=== PATIENT | female | born 1930 | race African-American/Black ===

== ENCOUNTER 2019-02-13 11:08 | Day surgery (SDC) | payer OTHER ==
[2019-02-11 12:28] VITALS: BMI 25.4
[2019-02-13] MEDS ORDERED: ISOSULFAN BLUE 10 MG/ML VIAL SQ ONE (12:21)
[2019-02-13] MEDS ORDERED: LIDOCAINE HCL 1%, 10 MG/ML (20ML VIAL) ONE (12:21)
[2019-02-13] MEDS ORDERED: MIDAZOLAM HCL 2 MG/2 ML SINGLE DOSE VIAL ONE (12:39)
[2019-02-13] MEDS ORDERED: PROPOFOL 20 ML ONE (13:44)
[2019-02-13] MEDS ORDERED: ceFAZolin SODIUM 1 GM VIAL IVPB ONE (13:50)
[2019-02-13] MEDS ORDERED: LIDOCAINE HCL 1%, 10 MG/ML (20ML VIAL) INF ONE ×2 (14:07)
[2019-02-13] MEDS ORDERED: ONDANSETRON 4 MG/2 ML VIAL IVPUSH PRN (14:44)
[2019-02-13] MEDS ORDERED: LACTATED RINGERS SOLUTION 1,000 ML IV SCH (14:45)
--- NOTE | 2019-02-13 15:54 | OP ---
DATE OF OPERATION: 02/13/2019 PREOPERATIVE DIAGNOSIS: Right breast cancer. POSTOPERATIVE DIAGNOSIS: Right breast cancer. PROCEDURE: Right breast lumpectomy with sentinel node biopsy. SURGEON: Yael Rubin MD ANESTHESIA: General. ESTIMATED BLOOD LOSS: Minimal. COMPLICATIONS: None. This was a sterile procedure. INDICATION FOR PROCEDURE: Patient presented with a palpable mass in the upper inner right breast. This was noted on a mammogram and ultrasound in May 2018. She underwent a needle biopsy at [facility] that showed invasive carcinoma ER/AR positive, HER2/daryl plus negative. She now presents to me for further management. My recommendation was a lumpectomy and sentinel node biopsy. The opinion of a mastectomy was discussed as well as she has a prior history of a carcinoma of the right breast. After discussion, decision was lumpectomy and a sentinel node biopsy. The procedure was discussed with all of the questions answered. PROCEDURE IN DETAIL: Patient was brought to [facility] in [place], taken to nuclear medicine where I injected technetium labelled sulfur colloid as an intradermal injection in the right breast 12 o'clock areolar border. She was then brought to the operating room, and after induction of general anesthesia and IV antibiotics, the right breast and axilla were prepped and draped in usual sterile fashion, 4 mL of Isosulfan blue dye was injected by me in the right subareolar plexus with a 25-gauge needle, and the breast was massaged for 5 minutes. The right breast and axilla were then prepped and draped in the usual sterile fashion, and a 4-cm incision was made in the right axilla using the prior incision as well as excising a keloid that was present there. The skin was sent as scar overlying right axilla. Once the right axilla was entered, the blue and hot lymph node identified. This was sent as right axillary sentinel lymph node number 1 blue and hot. I thought initially there was a 2nd area that was hot in vivo; however, ex vivo had no counts. This was sent as a right axillary nonsentinel lymph node. Initially, there was no other blue dye radioactivity within the axilla; therefore, the right breast lumpectomy was performed. Ellipse of skin was taken to include the skin overlying this palpable mass in the upper, inner right breast. Superior, inferomedial flaps were raised around this mass, and an en bloc lumpectomy was performed tagged with a long stitch lateral, short stitch superior. Sent to Pathology for permanent section. Grossly, I felt I had uninvolved margins. At this point, I went back into the axilla to ensure hemostasis. When rechecking with Neoprobe, there was another 2nd sentinel node noted that was hot but not blue. This was sent as right axillary sentinel node number 2 hot not blue. There were no other radioacvivity, blue dye, or pathologic feeling lymph node in the right axilla; therefore, once hemostasis was assured, the incisions were closed with interrupted 3-0 Vicryl, running 4-0 Biosyn. The lumpectomy incisions were also closed with 2-0 Vicryl, 3-0 Vicryl, and then a running Biosyn. A sterile dressing with Steri-Strips, Tegaderm was applied. She tolerated the procedure well, was extubated on the operating room table. A mammary binder was applied, and she was taken to recovery in good condition. YAEL RUBIN M.D. [id number]
[2019-02-13 18:13] VITALS: TEMP 97.9
[2019-02-13 18:22] VITALS: BP 153/77; PULSE 78
--- NOTE | 2019-02-18 09:21 | PATH ---
Surgical Pathology Report Patient Name: ROSALINDA SUE [facility]. Rec. #: [id number] /Age/Gender: 1930 (Age: 88) / F Account: [id number] Location: [facility] Taken: 02/13/2019 Received: 02/14/2019 Reported: 02/18/2019 Physicians: Yael Sands M.D. Specimen(s) Received A: AXILLARY SCAR, RIGHT B: RIGHT AXILLARY SENTINAL LYMPH NODE #1 BLUE AND HOT C: RIGHT AXILLARY NON SENTINEL LYMPH NODE D: RIGHT BREAST LUMPECTOMY E: RIGHT AXILLARY LYMPH NODE #2 HOT NOT BLUE Clinical History None given Final Diagnosis A. AXILLARY SCAR, RIGHT, EXCISION: SKIN WITH DERMAL FIBROSIS CONSISTENT WITH SCAR. B. AXILLARY SENTINEL NODE #1, RIGHT, BLUE AND HOT, EXCISION: ONE LYMPH NODE NEGATIVE FOR CARCINOMA (0/1). C. AXILLARY NON-SENTINEL NODE, RIGHT, EXCISION: ONE LYMPH NODE NEGATIVE FOR CARCINOMA (0/1). D. BREAST, RIGHT, LUMPECTOMY: INVASIVE DUCTAL CARCINOMA, MODERATELY DIFFERENTIATED (TUBULE SCORE: 3/3, NUCLEAR GRADE: 2/3, MITOTIC SCORE: 2/3; TOTAL BETO SCORE: 7/9). INVASIVE CARCINOMA MEASURES 3.3 CM IN GREATEST DIMENSION (GROSS MEASUREMENT). DUCTAL CARCINOMA IN SITU (DCIS), INTERMEDIATE NUCLEAR GRADE, CRIBRIFORM TYPE, WITH CENTRAL NECROSIS. NO LYMPHOVASCULAR INVASION IDENTIFIED. SURGICAL MARGINS ARE UNINVOLVED BY CARCINOMA. INVASIVE CARCINOMA IS 1 MM FROM CLOSEST DEEP MARGIN; WHILE REMAINDER OF MARGINS ARE >3 MM AWAY. DCIS IS 8 MM FROM CLOSEST DEEP MARGIN. SKIN IS UNINVOLVED BY CARCINOMA. PATHOLOGIC STAGE (pTNM): pT2 pN0(sn). SEE INVASIVE CARCINOMA CASE SUMMARY BELOW. E. AXILLARY SENTINEL NODE #2, RIGHT, HOT NOT BLUE, EXCISION: ONE LYMPH NODE NEGATIVE FOR CARCINOMA (0/1). Comments Breast Invasive Carcinoma: Surgical Pathology Case Summary (Based on AJCC TNM 8 th edition) Procedure _X_ Excision (less than total mastectomy) Specimen Laterality _X_ Right Tumor Size _X_ Greatest dimension of largest invasive focus >1 mm (millimeters): 33 mm (gross measurement) Histologic Type _X_ Invasive carcinoma of no special type (ductal, not otherwise specified) Histologic Grade ([place] Histologic Score) Glandular (Acinar)/Tubular Differentiation _X_ Score 3 (<10% of tumor area forming glandular/tubular structures) Nuclear Pleomorphism _X_ Score 2 Mitotic Rate _X_ Score 2 Overall Grade _X_ Grade 2 (scores of 7) Tumor Focality _X_ Single focus of invasive carcinoma Ductal Carcinoma In Situ (DCIS) _X_ DCIS is present in specimen _X_ Negative for extensive intraductal component (EIC) Margins Invasive Carcinoma Margins _X__ Uninvolved by invasive carcinoma Distance from closest margin (millimeters): 1 mm Closest margin: deep DCIS Margins _X__ Uninvolved by DCIS Distance from closest margin (millimeters): 8 mm Closest margin: Deep Regional Lymph Nodes _X__ Uninvolved by tumor cells Number of Lymph Nodes Examined: 3 Number of Agness Nodes Examined: 2 Treatment Effect _X_ No known presurgical therapy Lymphovascular Invasion _X_ Not identified Pathologic Stage Classification (pTNM, AJCC 8th Edition) Primary Tumor (Invasive Carcinoma) (pT) _X_ pT2: Tumor >20 mm but =50 mm in greatest dimension Regional Lymph Nodes (pN) Category (pN) _X__ pN0: No regional lymph node metastasis identified or ITCs only Biomarker Studies Results of ER and MN studies performed on this specimen (block#D1) at [facility] are as follows: ER (clone [id number] mouse monoclonal antibody by [employer]): ~40% nuclear staining with weak to moderate intensity (Positive). MN (clone16 mouse monoclonal antibody by [employer]):~20% nuclear staining with weak to moderate intensity (Positive). Results of Her2 and Ki67 studies will be reported separately in an addendum. Positive and negative controls (internal if applicable) show appropriate results. Formalin fixation and cold ischemic times are within current ASCO/CAP recommendations for ER, MN and Her2 testing. Electronically Signed Victoria Davison M.D. Addendum Reported: 02/20/2019 Addendum Diagnosis Results of Her2 (IHC) & Ki-67 studies performed on block "D1" at [place], [place] ([id number]) are as follows: Her2 IHC (EP3 from [employer], formerly known as [id number], using [employer] Polymer Refine detection kit): 2+ (Equivocal). Ki-67: ~20% (Intermediate proliferative index). HER2 by FISH pending findings will be reported separately. Positive and negative controls (internal if applicable) show appropriate results. Victoria Davison M.D. Addendum Reported: 02/26/2019 Addendum Diagnosis HER2 ANALYSIS BY FISH performed and interpreted at [facility], [place], [place] ([id number]) INTERPRETATION: NEGATIVE. Her2: 2.9 CEP17: 3.8 Her2:CEP17 ratio: 0.8 See Emerge report for details. Victoria Davison M.D. Gross Description A. Received in formalin labeled "right axillary scar #1" is a 2.7 x 0.7 cm mercedes-brown, elliptical, unoriented portion of skin excised to a depth of 1.0 cm. The epidermal surface displays a possible scar. [employer]ist sections are submitted in one cassette. B. Received in formalin labeled "right axillary sentinel lymph node #1," is a 0.7 x 0.6 x 0.5 cm lymph node with attached fat. Sectioning reveals a talavera metallic biopsy clip. The specimen is bisected and entirely submitted in one cassette. C. Received in formalin labeled "right axillary non-sentinel lymph node #3," is a 0.6 x 0.5 x 0.4 cm lymph node with attached fat. The lymph node is bisected and entirely submitted in one cassette. D. Received in formalin labeled "right breast lumpectomy," is an 8.0 x 6.0 x 4.2 cm portion of fibroadipose tissue with a short suture marking the superior aspect and a long suture marking the lateral aspect of the specimen, per the surgeon. There is no needle localization wire present. The anterior surface displays a 7.5 x 3.8 cm mercedes, elliptical, unremarkable portion of skin. The specimen is inked as follows: Superior blue; inferior green; lateral red; medial yellow; deep black. The specimen is serially sectioned from lateral to medial. Sectioning reveals a 3.3 x 3.0 x 2.6 cm mercedes, indurated mass. The mass is 0.2 cm from the superior margin and 0.2 cm from the deep margin. The lesion is 0.5 cm from the skin and 0.8 cm from the inferior margin. The remaining margins appear clear of the mass. [employer] Services Specialist sections are submitted in 10 cassettes as follows: 1-2-one full face bisected section of mass; 3-4-mass with deep margin; 5-6-mass with superior margin; 7-mass with inferior margin; 8-mass with skin; 9-lateral margin; 10-medial margin. Total formalin fixation time: Approximately 24 hours E. Received in formalin labeled "right axillary lymph node #2" is a 0.9 x 0.5 x 0.3 cm lymph node with attached fat. The lymph node is submitted in toto in one cassette. 02/14/2019 saudi02/14/2019
== END 2019-02-13 18:05 | disposition home or self-care (01) ==
LOC: JASU-SURG 11:08
PROVIDERS: ATTEND Surgery
PROC: 0HBT0ZZ Excision of Right Breast, Open Approach (ICD-10-PCS; principal; 2019-02-13 13:00)
DX: C50.211 Malignant neoplasm of upper-inner quadrant of right female breast (principal); Z17.0 Estrogen receptor positive status [ER+]; I10 Essential (primary) hypertension; I48.91 Unspecified atrial fibrillation; F41.9 Anxiety disorder, unspecified; E78.5 Hyperlipidemia, unspecified
CPT/HCPCS: 78195-TC; 88304-TC; 88307-TC; 88342-TC; 94760; A9541